=== PATIENT | female | born 1960 | race Caucasian/White ===

== ENCOUNTER 2017-03-29 14:25 | Emergency (ER) | payer SELFPAY ==
[2017-03-29 14:54] VITALS: BP 118/79
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
== END 2017-03-29 15:40 | disposition short-term general hospital (02) ==
LOC: UCEAST 14:25
DX: S09.90XA Unspecified injury of head, initial encounter (principal); E66.9 Obesity, unspecified; M54.2 Cervicalgia; R11.10 Vomiting, unspecified; R40.0 Somnolence; V43.52XA Car driver injured in collision with other type car in traffic accident, initial encounter; Z87.820 Personal history of traumatic brain injury
CPT/HCPCS: 99203; G0463

== ENCOUNTER 2017-03-29 15:53 | Emergency (ER) | payer SELFPAY ==
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
[2017-03-29] MEDS ORDERED: Metoclopramide IV* 5 MG/ML 2 ML VIAL IV ONE (19:25)
[2017-03-29] MEDS ORDERED: Ketorolac INJ* 30 MG/ML 1 ML VIAL IV PUSH ONE (19:26)
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
[2017-03-29 20:05] LABS: Hematocrit 43 % (35-47); Hemoglobin 14.2 g/dl (12.0-16.0); Mean Corpuscular HGB Conc 33 g/dl (31-36); Mean Corpuscular Hemoglobin 30 pg (27-31); Mean Corpuscular Volume 91 fL (80-97); Mean Platelet Volume 7 um3 (7.4-10.4); Red Blood Count 4.66 10^6/ul (4.0-5.4); Red Cell Distribution Width 13 % (10.5-15); White Blood Count 5.8 10^3/ul (3.5-10.8)
[2017-03-29 20:22] LABS: BUN/Creatinine Ratio 30.6 (8-20); Calcium 9.3 mg/dL (8.6-10.3); EGFR Non-African American 69.2 (>60); Potassium 3.9 mmol/L (3.5-5.0)
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
[2017-03-29 22:11] VITALS: BP 104/65
== END 2017-03-29 22:18 | disposition home or self-care (01) ==
LOC: ED 15:53
DX: F07.81 Postconcussional syndrome (principal); S16.1XXA Strain of muscle, fascia and tendon at neck level, initial encounter; R51 Headache; M54.2 Cervicalgia; R47.81 Slurred speech; X58.XXXA Exposure to other specified factors, initial encounter; Y93.9 Activity, unspecified; Y92.9 Unspecified place or not applicable
CPT/HCPCS: 36415; 70450; 72125; 80048; 85027; 99283; J1885

== ENCOUNTER 2017-06-05 21:15 | Emergency (ER) | payer MEDICARE ==
--- NOTE | 2017-06-05 22:06 | ED ---
Shiva Fajardo Rebecca, scribed for Juan Carlos Deal MD on 06/05/17 at 2142 . Headache - HPI Summary HPI Summary: Pt is a 56 y/o F who presents to ED c/o FERRO s/p head injury. Friend reports that she was picking berries underneath a camper and she stood up, hitting her head on the camper at 1800 tonight. FERRO began immediately after injury and has been constant since onset. Pain is currently severe, ranked 8/10. 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 - History Of Current Complaint Chief Complaint: EDHeadInjury Stated Complaint: HEAD INJURY,DISORIENTED Hx Obtained From: Patient, Family/Meeting Facilitator Onset/Duration: Sudden Onset, Still Present Currently Pain Is: Current Pain Scale(0-10)= - 8/10, Severe Timing: Constant Aggravating Factor: Nothing Allevating Factors: Nothing Associated Signs And Symptoms: Other (Noted In Comments) - AMS - confusion; LOC 1 hour after injury Related History: Recent Trauma: - Hit head on camper at 1800 - Allergies/Home Medications Allergies/Adverse Reactions: Allergies Allergy/AdvReac Type Severity Reaction Status Date / Time No Known Allergies Allergy Verified 03/29/17 14:36 PMH/Surg Hx/FS Hx/Imm Hx Endocrine/Hematology History: Denies: Hx Diabetes Cardiovascular History: Denies: Hx Hypertension, Hx Pacemaker/ICD History: Denies: Hx Renal Disease Sensory History: Denies: Hx Hearing Aid Psychiatric History: Denies: Hx Panic Disorder - Cancer History Hx Chemotherapy: No Hx Radiation Therapy: No - Surgical History Surgery Procedure, Year, and Place: ovarian cyst. ORAL SURG - 2005. TONSILECTOMY - 1966 Infectious Disease History: Denies: Traveled Outside the [place] in Last 30 Days - Family History Known Family History: Negative: Cardiac Disease, Hypertension, Diabetes - Social History Alcohol Use: None Substance Use Type: Reports: None Smoking Status (MU): Never Smoked Tobacco Review of Systems Negative: Fever Neurological: Other - LOC 1 hour after injury; slight AMS - confusion Positive: Headache All Other Systems Reviewed And Are Negative: Yes Physical Exam Triage Information Reviewed: Yes Vital Signs On Initial Exam: Initial Vitals Temp Pulse Resp BP Pulse Ox 98.0 F 78 22 102/71 96 06/05/17 21:17 06/05/17 21:17 06/05/17 21:17 06/05/17 21:17 06/05/17 21:17 Vital Signs Reviewed: Yes Appearance: Positive: Well-Appearing, No Pain Distress Skin: Positive: Warm Head/Face: Positive: Normal Head/Face Inspection Eyes: Positive: EOMI, RONEL ENT: Positive: Hearing grossly normal Neck: Positive: Supple, Nontender Respiratory/Lung Sounds: Positive: Clear to Auscultation, Breath Sounds Present Cardiovascular: Positive: RRR Abdomen Description: Positive: Nontender, Soft Bowel Sounds: Positive: Present Musculoskeletal: Positive: Strength/ROM Intact Neurological: Positive: Sensory/Motor Intact, Alert, Oriented to Person Place, Time, Normal Gait Psychiatric: Positive: Affect/Mood Appropriate Diagnostics - Vital Signs Vital Signs Temp Pulse Resp BP Pulse Ox 06/05/17 21:17 98.0 F 78 22 102/71 96 - Laboratory Lab Statement: Any lab studies that have been ordered have been reviewed, and results considered in the medical decision making process. - CT CT Brain CT Interpretation: No Acute Changes - No acute brain parenchymal abnormality and no change since 03/29/2017. No hemorrhage, mass or acute territorial infarct, No skull fracture. Clear visualized paranasal sinuses. Visualized mastoid air cells clear. CT Interpretation Completed By: Radiologist CT C-Spine CT Interpretation: No Acute Changes - No acute fracture or malalignment. Multilevel spondylosis. Straightening of cervical lordosis, possibly due to positioning or muscle spasm. CT Interpretation Completed By: Radiologist - EKG 2130 Cardiac Rate: NL - 79 bpm EKG Rhythm: Sinus Rhythm EKG Interpretation: No STEMI Re-Evaluation - Re-Evaluation First Eval Re-Evaluation Time: 23:04 Change: Improved Comment: Discussed CT results with the pt and family. Headache Course/Dx - Course Assessment/Plan: Pt is a 56 y/o F who presents to ED c/o FERRO s/p head injury. Friend reports that she was picking berries underneath a camper and she stood up , hitting her head on the camper at 1800 tonight. FERRO began immediately after injury and has been constant since onset. Pain is currently severe, ranked 8/ 10. 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 CT brain, CT C-Spine and EKG reveal no acute findings. She will be D/C to home with Dx of concussion and closed head injury. She understands and agrees. Patient's medications reviewed this visit. - Diagnoses Provider Diagnoses: Concussion, Closed head injury Discharge - Discharge Plan Condition: Stable Disposition: HOME Patient Education Materials: Concussion (ED) Referrals: Ismael Broderick MD [Primary Care Provider] - 3 Days Additional Instructions: RETURN TO EMERGENCY DEPARTMENT FOR ANY RETURNING OR WORSENING SYMPTOMS. The documentation as recorded by the Shiva damon Rebecca accurately reflects the service I personally performed and the decisions made by , Juan Carlos Deal MD.
[2017-06-05] MEDS ORDERED: Ketorolac INJ* 30 MG/ML 1 ML VIAL IV PUSH ONE (23:06)
[2017-06-06 00:01] VITALS: BP 96/58
--- NOTE | 2017-06-06 09:02 | RAD ---
Indication: Fall, head injury and neck injury. CT of the cervical spine was obtained in the axial plane. Sagittal and coronal reconstructed images were obtained. Skull base demonstrates no fracture. Mastoid air cells are well aerated. The C1 ring is intact without evidence of fracture. There is straightening of the normal lordosis. At C2-C3, C3-C4 and C4-C5 no disc protrusion is noted. No fracture is identified. No central or foraminal stenosis is noted. At C5-C6 spondylitic ridge flattens the thecal sac. No focal protrusion is identified. The intervertebral foramen appear patent. At C6-C7 spondylitic ridge flattens the thecal sac. No central or foraminal stenosis is noted. At C7-T1 and T1-T2 disc space appears unremarkable. IMPRESSION: NO FRACTURE OF THE CERVICAL SPINE IS NOTED. DEGENERATIVE DISC DISEASE AT C5-C6 AND C6-C7 IS NOTED.
--- NOTE | 2017-06-06 09:10 | RAD ---
Indication: Fall, head injury. CT of the brain was performed without IV contrast. Ventricular structures are midline. No midline shift is noted. The extra-axial spaces are unremarkable. No evidence of mass or hemorrhage. No other high or low density lesions are identified. Mastoid air cells and visualized paranasal sinuses are unremarkable. No calvarial fracture is noted. IMPRESSION: No intracranial mass or hemorrhage is noted.
== END 2017-06-06 00:05 | disposition home or self-care (01) ==
LOC: ED 21:15
DX: S06.0X9A Concussion with loss of consciousness of unspecified duration, initial encounter (principal); S09.90XA Unspecified injury of head, initial encounter; R51 Headache; W22.8XXA Striking against or struck by other objects, initial encounter; Y93.89 Activity, other specified; Y92.89 Other specified places as the place of occurrence of the external cause
CPT/HCPCS: 70450; 72125; 93005; 96374; 99283; J1885

== ENCOUNTER 2019-06-30 12:36 | Emergency (ER) | payer MEDICARE ==
--- NOTE | 2019-06-30 12:40 | UC ---
Shoulder Pain HPI - HPI Summary HPI Summary: 58 yo female presents with RIGHT shoulder pain. She tells me that she was cleaning her bathroom 2 days ago and twisted her right arm/shoulder and felt a strain/pop in her shoulder. Since that time has had pain in her shoulder with any movement and decreased ROM. Has been taking ibuprofen for discomfort with little relief. She is LEFT handed. Denies numbness or tingling. - History of Current Complaint Stated Complaint: SHOULDER INJURY Time Seen by Provider: 06/30/19 12:39 Hx Obtained From: Patient Onset/Duration: Sudden Onset Severity Initially: Moderate Severity Currently: Moderate Pain Intensity: 7 Pain Scale Used: 0-10 Numeric - Allergies/Home Medications Allergies/Adverse Reactions: Allergies Allergy/AdvReac Type Severity Reaction Status Date / Time No Known Allergies Allergy Verified 06/30/19 12:50 Home Medications: Home Medications Ibuprofen TAB* [Advil TAB*] 400 mg PO Q6H PRN 06/30/19 [History Confirmed ] PMH/Surg Hx/FS Hx/Imm Hx Neurological History: Migraine Psychological History: Anxiety - Surgical History Surgical History: Yes Surgery Procedure, Year, and Place: ovarian cyst. ORAL SURG - 2005. TONSILECTOMY - 1966 - Family History Known Family History: Negative: Cardiac Disease, Hypertension, Diabetes - Social History Lives: With Family Alcohol Use: None Substance Use Type: None Smoking Status (MU): Never Smoked Tobacco Review of Systems All Other Systems Reviewed And Are Negative: Yes Constitutional: Positive: Negative Skin: Positive: Negative Respiratory: Positive: Negative Cardiovascular: Positive: Negative Neurovascular: Positive: Negative Musculoskeletal: Positive: Other: - Right shoulder pain Neurological: Positive: Negative Psychological: Positive: Negative Physical Exam - Summary Physical Exam Summary: GENERAL: NAD. WDWN. No pain distress. SKIN: No rashes, sores, lesions, or open wounds. CHEST: No accessory muscle use. Breathing comfortably and in no distress. CV: Pulses intact radial and ulnar. Cap refill <2seconds MSK: RIGHT SHOULDER: Mild TTP at anterior aspect of shoulder. Active ROM to ~30 deg before pain stops her. Passive ROM to ~60deg before pain stops her. system sales consultant strength intact. No edema or obvious bony deformities. Unable to perform specialized testing due to pain NEURO: Alert. Sensations intact C4-T1 b/l PSYCH: Age appropriate behavior. Triage Information Reviewed: Yes Vital Signs: Vital Signs: Temp Pulse Resp BP Pulse Ox 99.6 F 93 16 111/71 97 06/30/19 12:46 06/30/19 12:46 06/30/19 12:46 06/30/19 12:46 06/30/19 12:46 Vital Signs Reviewed: Yes Shoulder Course/Dx - Course Course Of Treatment: XR: IMPRESSION: NO EVIDENCE OF FRACTURE. Suspect RTC injury. Pt was placed in a sling and given toradol IM in the clinic for comfort. Rx for flexeril and advise to continue NSAIDs tomorrow. Recommend f/u with PT and Orthopedics for further eval - Differential Dx/Diagnosis Provider Diagnosis: Right shoulder injury Discharge - Sign-Out/Discharge Documenting (check all that apply): Patient Departure All imaging exams completed and their final reports reviewed: Yes - Discharge Plan Condition: Stable Disposition: HOME Prescriptions: Cyclobenzaprine TAB* [Flexeril 10 MG TAB*] 10 mg PO TID PRN #21 tab PRN Reason: Pain - Moderate Patient Education Materials: Rotator Cuff Injury (ED) Referrals: Ismael Broderick MD [Primary Care Provider] - Ghulam Collier MD [Medical Doctor] - 1 Week Additional Instructions: If you develop a fever, shortness of breath, chest pain, new or worsening symptoms - please call your PCP or go to the ED immediately. 1) Rest and apply ice/heat to your shoulder intermittently throughout the day to reduce discomfort 2) Use the sling as needed for comfort and practice gentle range of motion exercises. May continue ibuprofen 600mg every 6 hours tomorrow 3) I recommend that you schedule with Physical Therapy and Orthopedics within 1- 2 weeks for further evaluation - Billing Disposition and Condition Condition: STABLE Disposition: Home
[2019-06-30 12:50] VITALS: BP 111/71
[2019-06-30] MEDS ORDERED: Ketorolac *IM* INJ* 60 MG/2 ML VIAL IM ONE (13:33)
--- OUTSIDE RECORDS SUMMARY | 2019-06-30 13:41 | XMS REPORT | Continuity of Care Document ---
:1960 External Reference #:[id number] Author Name Ayo Phillips M.D. Address [address] [place] [address] Care Team Providers Name Role Phone Ismael Broderick M.D. Primary Care Physician Unavailable Payers Date Identification Numbers Payment Provider Subscriber Policy Number: [id number] Medicare - [facility] Karol Tabor PayID: [id number] [address] [place] [address] Policy Number: [id number] [facility] Karol Tabor PayID: [id number] [address] [place] [address] Problems Active Problems Provider Date Traumatic brain injury Onset: Pain Onset: Unable to concentrate Onset: Fatigue Onset: Anxiety Onset: Mild depression Onset: Central pain syndrome Onset: Headache Ayo Phillips M.D. Onset: 10/07/2016 Visual disturbance Ayo Phillips M.D. Onset: 10/07/2016 Corneal endothelial dystrophy Ayo Phillips M.D. Onset: 10/07/2016 Impairment of balance Onset: Neuropathy Onset: Note: pinky fingers - numb and tingly Concussion with loss of consciousness of Ayo Phillips M.D. Onset: 2016 unspecified duration, subsequent encounter Presbyopia Ayo Phillips M.D. Onset: 02/10/2017 Myopia Ayo Phillips M.D. Onset: 02/10/2017 Concussion injury of brain Onset: Note: 03/2017 Tear film insufficiency Lisa Earl O.D. Onset: 03/26/2017 Generalized visual field constriction Ayo Phillips M.D. Onset: 2016 Posterior subcapsular polar senile cataract Lisa Earl O.D. Onset: 05/09 Ptosis of eyelid Lisa Earl O.D. Onset: 05/09/2019 Conjunctivitis Lisa Earl O.D. Onset: 05/09/2019 Angular blepharoconjunctivitis Lisa Earl O.D. Onset: 05/09/2019 Family History Date Family Member(s) Observation Comments General Cataract General Glaucoma Father No Current Problems Mother No Current Problems Social History Type Date Description Comments Sex Unknown Marital Status Legal Status: Legally Occupation Lighting Engineer Work Status Disabled ETOH Use Denies alcohol use Recreational Drug Use Denies Drug Use Tobacco Use Start: Unknown End: Patient is a former smoker Unknown Smoking Status Reviewed: 06/08/19 Patient is a former smoker Allergies, Adverse Reactions, Alerts Description No Known Drug Allergies Medications Active Medications SIG Qnty Indications Ordering Provider Date Ladi 128 1 drop both eyes 15ml H18.51 Ayo Phillips, 10/21/2016 2% Solution three times M.D. daily Genteal 1 drop both eyes Ayo Phillips, 10/20/2016 0.25-0.3% Gel 4-5 times a day M.D. Wellbutrin XL Unknown 300mg Tablets ER 24HR Neurontin as needed - max Unknown 800mg Tablets 2 daily Topamax 1 tablet daily Unknown 50mg Tablets Amitriptyline HCL Unknown 75mg Tablets Genteal Severe qhs ou Lisa Earl, 0.3% Gel O.DAlan Abilify 1/2 tablet 1x Unknown 5mg Tablets daily Trazodone HCL Unknown 100mg Tablets Adderall 1 tablet daily Unknown 10mg Tablets History Medications Maxitrol apply 11/25' to all 3.500gm H02.401 Lisa Peace 05/09/2019 - 3.5-66530-2.1 lids every night Rajat, O.DAlan 06/07/2019 Ointment at bedtime x 1 week Ladi 128 both eyes every 7gm H18.51 Ayo 2017 - 5% Ointment night For 1 Week [facility], 05/08/2019 Then Trial Off Of M.D. It Restasis 1 drops both eyes 180units Lisa SandovalAlan 05/20/2017 - 0.05% Emulsion twice a day Rajat O.DAlan 09/30/2017 Prednisolone Sodium one drop to the 10ml H04.123 Ayo 04/08/2017 - Phosphate left eye twice a ock, 09/30/2017 1% Solution day for 2 weeks M.D. then stop Neomycin/Polymyxin/Dex apply one drop to 5ml H04.123 Ayo 04/08/2017 - amethasone Left eye, two ock, 04/08/2017 0.1% times a day for 2 M.D. Suspension weeks Neomycin/Polymyxin/Dex apply a thin 7gm H04.123 Ayo 04/08/2017 - [facility] 04/08/2017 3.5-05694-9.1 eye at night for M.D. Ointment 2 weeks, then discontinue Xiidra use 1 drop twice 180units H04.123 Ayo 03/26/2017 - 5% Solution a day both eyes ock, 09/30/2017 M.D. Ritalin LA every day Unknown - 10mg Caps ER 05/09/2019 24HR Prozac 1 tab po daily Unknown - 20mg Capsules 09/30/2017 Elavil Unknown - 25mg Tablets 09/30/2017 Clonazepam Unknown - 2mg Tablets 2016 [place] 3 H18.51 Lisa Kobi - 1000mg Capsules Rajat O.DAlan 05/09/2019 Methylphenidate HCL Unknown - 20mg 04/01/2017 Tablets Oxycodone HCL Unknown - 5mg Tablets 05/09/2019 Topiramate Unknown - 100mg Tablets 09/30/2017 Modafinil Ismael Broderick, - 100mg Tablets M.D. 09/30/2017 Metoclopramide HCL Unknown - 10mg 09/30/2017 Tablets Methylphenidate HCL Take 1 Tablet By Unknown - 20mg Mouth Twice A Day 05/08/2019 Tablets Vital Signs Date Vital Result Comment 11/03/2017 2:32pm BP Systolic 143 mmHg BP Diastolic 94 mmHg Heart Rate 81 /min Respiratory Rate 15 /min 10/01/2017 3:52pm BP Systolic 152 mmHg BP Diastolic 90 mmHg Heart Rate 93 /min Procedures Date Code Description Status 05/09/2019 91326 Est Patient Comprehensive Exam Completed 2017 05348 Determination Of Refractive State Completed 2017 53467 Est Patient Intermediate Exam Completed 11/03/2017 15688 Close Lacrimal Punctum, Plug Completed 11/03/2017 06656 Close Lacrimal Punctum, Plug Completed 11/03/2017 20231 Close Lacrimal Punctum, Plug Completed 11/03/2017 60634 Close Lacrimal Punctum, Plug Completed 10/27/2017 45958 Est Patient Comprehensive Exam Completed 10/27/2017 95573 Visual Field Exam Extended Completed 10/27/2017 10672 Scanning Computerized Ophthalmic Diagnostic Imag Posterior Completed Seg On 10/01/2017 25031 Est Patient Intermediate Exam Completed 10/01/2017 91626 Close Lacrimal Punctum, Plug Completed 10/01/2017 29875 Close Lacrimal Punctum, Plug Completed 02/10/2017 32140 Determination Of Refractive State Completed 10/21/2016 59783 Pachymetry Completed 10/07/2016 31786 Fundus Photography With Interpretation And Report Completed 10/07/2016 90155 New Patient Comprehensive Exam Completed Encounters Type Date Location Provider Dx Diagnosis Office Visit 05/11/2019 Ayo Cole H02.401 Unspecified ptosis 9:00a , familia Phillips M.D. 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 of bilateral lacrimal glands Office Visit 03/26/2017 11:00a Chritsiano Earl H04.123 Dry eye syndrome MD Lynne, familia Hanson of bilateral lacrimal glands Office Visit 02/09/2017 11:00a Christiano Rollins H18.51 Endothelial MD Lynne, familia Phillips M.D. corneal dystrophy S06.0x9D Concussion w loss of consciousness of unsp duration, subs Office Visit 10/21/2016 8:30a Christiano Rollins H18.51 Endothelial MD Lynne, familia Phillips M.D. corneal dystrophy Plan of Treatment 06/08/2019 - Ayo Phillips M.D.H49.01 Third [oculomotor] nerve palsy, right eyeComments:Smoking can increase the risk of developing or worsening any eye related disease, as well as affect your overall health. If you are a smoker, we strongly recommend that you quit.If you are not a smoker, we strongly recommend that you do not start.Follow up:3 Month Follow Up DIPLOPIA CHECK At your next visit, we are not planning to dilate your eyes. However, if you have any changes in your vision or new symptoms, there are certain situations that requireus to dilate your eyes. If Dr. Phillips requests any additional testing, that may require extra time. If you have any questions before your next appointment, please call our office at .H02.401 Unspecified ptosis of right eyelid
== END 2019-06-30 13:57 | disposition home or self-care (01) ==
LOC: UCEAST 12:36
DX: S49.91XA Unspecified injury of right shoulder and upper arm, initial encounter (principal); X50.0XXA Overexertion from strenuous movement or load, initial encounter; Y93.E9 Activity, other interior property and clothing maintenance; Y92.012 Bathroom of single-family (private) house as the place of occurrence of the external cause; Y99.8 Other external cause status; F41.9 Anxiety disorder, unspecified
CPT/HCPCS: 96372; 99213; G0463; J1885